=== PATIENT | female | born 1995 | race Caucasian/White ===

== ENCOUNTER 2016-07-14 18:05 | Emergency (ER) | payer OTHER ==
[2016-07-14 19:22] LABS: HEMOGLOBIN 13.8 gm/dl (12.3-15.3); RED BLOOD COUNT 4.73 M/UL (4.00-5.10); WHITE BLOOD COUNT 10.5 K/UL (4.5-11.0)
[2016-07-14 19:38] LABS: BUN/CREATININE RATIO 22 (0-10)
== END 2016-07-14 22:53 | disposition home or self-care (01) ==
LOC: ER1 18:05
PROVIDERS: Emergency Medicine
DX: F41.9 Anxiety disorder, unspecified (principal); R09.1 Pleurisy
CPT/HCPCS: 36415; 71020; 80053; 81001; 83690; 84703; 85025; 85379; 85610; 85730; 87086; 93005; 96361; 96365; 99284; J0696; J1885; J7030; J7050

== ENCOUNTER 2020-08-17 04:54 | Emergency (ER) | payer OTHER ==
[~2020-08-17 04:54] MED LIST: COLACE 100MG C100 MG PO; FERROUS SULFAT325 M2 PO; IBUPROFEN600 MG PO; IBUPROFEN800 MG PO; LORTAB 5-325 M1 EACH PO; LOVENOX40 MG/0.4 SQ; PRENATAL VITAM1 EAC8 PO; XARELTO15 MG PO; XARELTO20 MG PO
[2020-08-17] MEDS ORDERED: ELIQUIS 5 MG TAB5 MG PO (05:27)
[2020-08-17 05:54] LABS: HEMOGLOBIN 13.2 gm/dl (12.3-15.3); RED BLOOD COUNT 5.07 M/UL (4.00-5.10); WHITE BLOOD COUNT 8.9 K/UL (4.5-11.0)
[2020-08-17 06:18] LABS: BUN/CREATININE RATIO 14 (0-10)
== END 2020-08-17 05:48 | disposition home or self-care (01) ==
LOC: ER1 04:54
PROVIDERS: Internal Medicine
DX: I82.401 Acute embolism and thrombosis of unspecified deep veins of right lower extremity (principal); F17.210 Nicotine dependence, cigarettes, uncomplicated; Z86.711 Personal history of pulmonary embolism; Z86.718 Personal history of other venous thrombosis and embolism
CPT/HCPCS: 80053; 85025; 85610; 85730; 99283

== ENCOUNTER 2020-08-18 00:49 | Emergency (ER) | payer OTHER ==
[~2020-08-18 00:49] MED LIST changes: +ELIQUIS 5 MG TAB5 MG PO
[2020-08-18 01:25] LABS: HEMOGLOBIN 13.3 gm/dl (12.3-15.3); RED BLOOD COUNT 5.12 M/UL (4.00-5.10); WHITE BLOOD COUNT 10.4 K/UL (4.5-11.0)
[2020-08-18 01:55] LABS: BUN/CREATININE RATIO 13 (0-10)
== END 2020-08-18 02:44 | disposition home or self-care (01) ==
LOC: ER1 00:49
PROVIDERS: Physician Assistant
DX: R07.89 Other chest pain (principal); R00.2 Palpitations; R06.02 Shortness of breath; M79.604 Pain in right leg; R94.6 Abnormal results of thyroid function studies; F17.210 Nicotine dependence, cigarettes, uncomplicated; Z86.718 Personal history of other venous thrombosis and embolism
CPT/HCPCS: 80053; 82550; 82553; 83874; 84439; 84443; 84484; 85025; 85610; 85730; 93005; 99285; Q9967

== ENCOUNTER → 2020-08-22 | Outpatient (CLI) | payer OTHER | LOC: KOH-I 08-17 11:30 → EXRD 08-17 11:30 | DX: I82.401 Acute embolism and thrombosis of unspecified deep veins of right lower extremity (principal) | CPT/HCPCS: 93971 ==

== ENCOUNTER → 2020-09-07 | Outpatient (CLI) | payer OTHER | LOC: US 09-02 14:30 | DX: R79.89 Other specified abnormal findings of blood chemistry (principal); E07.89 Other specified disorders of thyroid | CPT/HCPCS: 76536 ==

== ENCOUNTER → 2020-10-06 | Outpatient (CLI) | payer OTHER | LOC: NM 10-03 07:30 | DX: R79.89 Other specified abnormal findings of blood chemistry (principal) | CPT/HCPCS: 78012; A9516 ==